=== PATIENT | female | born 1965 | race Caucasian/White ===

== ENCOUNTER → 2017-07-24 | Outpatient (CLI) | payer BC, OTHER ==
--- NOTE | ~2017-07-24 | O ---
[facility] [place] [address] OPERATIVE REPORT Name: GILBERTO TRUJILLO Room #: REG [facility]#: [id number] Admission: 07/24/17 Attend Phys: Ryan Gandara MD Discharge: Date of : 67 Report #: [id number] THIS REPORT FOR: //name// CC: Guillermo Almonte CLINICAL HISTORY: A 51-year-old white female with cavitary left upper lobe lung lesion. A diagnostic bronchoscopy was performed. POSTOPERATIVE DIAGNOSES: 1. Mild mucosal erythema involving the left upper lobe. 2. No endobronchial lesion seen. No evidence of purulent secretions seen. DESCRIPTION OF PROCEDURE: Following obtained consent and risks and benefits been explained to the patient, which included infection, bleeding, pneumothorax, the procedure was performed in the endoscopy suite. The patient received 4% aerosolized lidocaine to the upper airways, 2% and 1% to the upper airways. She also received total 6 mg of Versed and 50 mcg of fentanyl. A flexible fiberoptic bronchoscope was then introduced to the right naris without difficulty. The epiglottis was normal. Vocal cords were normal. Trachea was normal, sunshine was normal. Right main stem bronchus, right upper lobe, right middle lobe and right lower lobe were normal. Left mainstem bronchus were normal. The left upper lobe orifice was mildly erythematous and edematous. Mild mucus plug was seen in the apical segment of the left upper lobe. No overt purulent secretion was seen. No bleeding was noted. The left lower lobe was normal. Bronchoalveolar lavage was performed. 3 aliquots of 20 mL of normal saline was used. There was adequate return. Otherwise, the patient did have moderate cough during the procedure. Therefore, transbronchial biopsy was not performed. Otherwise, the patient tolerated the procedure well. Vital signs and saturation throughout the study were within normal range. The bronchial lavage specimen will be sent for microbiology studies including AFB smear, cytology along with cell count. <ELECTRONICALLY SIGNED> By: Ryan Gandara MD 07/28/17 1613 1618 1839 Ryan Gandara MD /nt
--- NOTE | ~2017-07-24 | CNG ---
[facility] [place] [address] CYTO-NONGYN REPORT PROCEDURE Name: SANDY TRUJILLO Room #: REG [facility].#: [id number] Admission: 07/24/17 Date of : 67 Discharge: Report #: [id number] Path Case #: [id number] CYTOPATHOLOGY REPORT COLLECTION DATE: 07/24/2017 RECEIVED DATE: 07/24/2017 SUBMITTING PHYS: Dr. Ryan Gandara OTHER PHYS: Dr. Guillermo Torres CLINICAL HISTORY: Cavitary lesion. SPECIMEN(S) RECEIVED: A.Bronchoalveolar lavage, LUCY * * * * * * * * * * * * FINAL DIAGNOSIS: A. Bronchoalveolar lavage, LUCY: - No malignant cells identified. Reactive, possibly atypical, bronchial epithelial cells are present. Alveolar macrophages and inflammatory cells are present. PATHOLOGIST: Nolan Miranda M.D. REPORT ELECTRONICALLY SIGNED BY: Nolan Miranda M.D. DATE/TIME: 07/25/2017 11:30 * * * * * * * * * * * * GROSS PATHOLOGY: A. Bronchoalveolar lavage, LUCY: The specimen is submitted unfixed, labeled "Susan Wiliknstyler Cuellar". Received by the Cytology Department is 15 mL of cloudy pink fluid. One ThinPrep slide was prepared. (clt 07.24.2017) TABLEAU ANALYST(S): IGNACIO Mims([facility] INITIAL CPT CODE(S): A; 97443 Professional services performed by [facility] at [facility] [address], [place] [address] Technical services performed by [facility] at [address] [place] [address]., [address], [place] [address]. [facility] [address] [place] [address], [facility] [address] [place], [place] [id number] [place] [address] [place] [address] CYTO-NONGYN REPORT PROCEDURE Name: SANDY TRUJILLO Room #: REG [facility] Milena.#: [id number] Admission: 07/24/17 Date of : 67 Discharge: Report #: [id number] Path Case #: [id number] PHONE: [phone] DIRECTOR: Justen Funes M.D. * * * END OF REPORT * * *
[2017-07-24 12:47] LABS: BF NUCLEATED CELLS 1693; BF RBC 6249
[2017-07-24 12:50] LABS: CLARITY SLIGHTLY CLOUDY; COLOR PINK; MANUAL DIFF YES; TOTAL VOLUME 20 mL
[2017-07-24 14:07] LABS: BF MACROPHAGE 15; BF NEUTROPHILS 72
== END | disposition home or self-care (01) ==
LOC: CATH 06:36
DX: R91.1 Solitary pulmonary nodule (principal)

== ENCOUNTER → 2020-06-27 | Outpatient (CLI) | payer BC, OTHER | LOC: RAD 09:20 | PROVIDERS: ATTEND Internal Medicine Pulmonary Disease | DX: R91.8 Other nonspecific abnormal finding of lung field (principal); R05 Cough; R91.1 Solitary pulmonary nodule ==

== ENCOUNTER 2020-11-28 07:28 | Outpatient (CLI) | payer BC, OTHER ==
[~2020-11-28] VITALS: Ht 177.8 cm; Wt 75.7 kg
[~2020-11-28 07:28] MED LIST: ALEVE220 M1 PO; ARAVA10 MG PO; FOLIC ACID1 MG PO; METHOTREXATE 22.5 M1 PO; PLAQUENIL200 MG PO; TRELEGY ELLIPT1 EACH INH
[2020-11-28 08:16] VITALS: BP 154/73
--- NOTE | 2020-11-29 16:06 | PATH ---
[facility] [address] [place] [address] PATHOLOGY RPT PROCEDURE Name: GILBERTO TRUJILLO Room #: DEP [facility].#: [id number] Admission: 11/28/20 Date of : 67 Discharge: 11/28/20 Report #: [id number] Path Case #: [id number] Note [facility] Accession Number: [id number] TESTS RESULT FLAG UNITS REF RANGE LAB Clinician Provided Cytology Information No. of containers..01 Slide Source: 01 BRUSHING RUL DIAGNOSIS: 02 BRUSHING RUL NEGATIVE FOR MALIGNANT EPITHELIAL CELLS. REACTIVE BRONCHIAL CELLS AND MACROPHAGES ARE PRESENT. PULMONARY MACROPHAGES (DUST CELLS) ARE PRESENT. Pathologist ICD10: 02 J18.9 Signed out by: 02 Ariella Mathew MD, Pathologist NPI- [id number] Performed by: Jelly Dela Cruz, Teacher Private ([facility]) Gross description: 01 1 FX /LCS 11/28/20202013 [facility] FLAG LEGEND: L-Low Normal,H-High Normal,LL-Alert Low,HH-Alert High <-Panic Low,>-Panic High,A-Abnormal,AA-Critical Abnormal Performed at: [address] [place] [address] Marcial Jackson MD, [address] [address] Ariella Mathew MD, Performed at: [address], [place], [place] [id number] MD Marcial Jackson MD Phone: [phone]
--- NOTE | 2020-11-29 16:06 | PATH ---
[facility] [address] [place] [address] PATHOLOGY RPT PROCEDURE Name: GILBERTO TRUJILLO Room #: DEP [facility].#: [id number] Admission: 11/28/20 Date of : 67 Discharge: 11/28/20 Report #: [id number] Path Case #: [id number] Note [facility] Accession Number: [id number] TESTS RESULT FLAG UNITS REF RANGE LAB Clinician Provided Cytology Information No. of containers..01 Other (Miscellaneous) Source: BRUSHING RUL BT DIAGNOSIS: BRUSHING RUL BT NEGATIVE FOR MALIGNANT EPITHELIAL CELLS. REACTIVE BRONCHIAL CELLS ARE PRESENT. Pathologist ICD10: 02 J18.9 Signed out by: 02 Ariella Mathew MD, Pathologist NPI- [id number] Performed by: 01 Olivia Dela Cruz Flower Shop Manager ([facility]) Gross description: 01 1 TP /ASIM 11/28/20202012 [facility] FLAG LEGEND: L-Low Normal,H-High Normal,LL-Alert Low,HH-Alert High <-Panic Low,>-Panic High,A-Abnormal,AA-Critical Abnormal Performed at: [address] [place] [address] Marcial Jackson MD, [address] [address] Ariella Mathew MD, Performed at: [address], [place], [place] [id number] MD Marcial Jackson MD Phone: [phone]
--- NOTE | 2020-11-29 16:06 | PATH ---
[facility] [address] [place] [address] PATHOLOGY RPT PROCEDURE Name: SANDY TRUJILLO Room #: DEP [facility].#: [id number] Admission: 11/28/20 Date of : 67 Discharge: 11/28/20 Report #: [id number] Path Case #: [id number] [facility] Accession Number: [id number] . 01 Material submitted: . lung - RIGHT UPPER LUNG. Modifiers: right, upper . 01 Clinical history: . RESISTENT INFECTION . 02 Diagnosis: Bronchus, right upper lobe tissue, biopsy: - Fragments of benign bronchial epithelium with chronic inflammation and numerous eosinophils. - Negative for dysplasia or malignancy. (IUV:nature photographer; 11/29/2020) MBR 11/29/2020 1410 Local . 02 Electronically signed: . Ariella Mathew MD, Pathologist NPI- [id number] . 01 Gross description: . The specimen is received in formalin, labeled "Sandy Trujillo, RUL biopsy". Received is a single needle core of pale pederson tissue measuring 0.6 cm in length by 0.1 cm in diameter. The specimen is filtered and entirely submitted in cassette A1. (CAA; 11/28/2020) QAC/QAC 11/29/2020 1409 Local . 02 Pathologist provided ICD-10: J98.4 . 02 CPT . 769708 Specimen Comment: A courtesy copy of this report has been sent to [phone] Specimen Comment: [phone] Specimen Comment: Report sent to / DR CALIXTO Performed at: [address], [place], [place] [id number] MD Marcial Jackson MD Phone: [phone] Performed at: [address] [id number] MD Ariella Mathew MD Phone: [phone]
--- NOTE | 2020-11-29 16:06 | PATH ---
[facility] [address] [employer] [place] [address] PATHOLOGY RPT PROCEDURE Name: GILBERTO TRUJILLO Room #: DEP [facility].#: [id number] Admission: 11/28/20 Date of : 67 Discharge: 11/28/20 Report #: [id number] Path Case #: [id number] Note [facility] Accession Number: [id number] TESTS RESULT FLAG UNITS REF RANGE LAB Clinician Provided Cytology Information No. of containers..01 Other (Miscellaneous) Source: BRONCH WASH RUL DIAGNOSIS: 02 BRONCH WASH RUL NEGATIVE FOR MALIGNANT EPITHELIAL CELLS. REACTIVE BRONCHIAL CELLS AND MACROPHAGES ARE PRESENT. PULMONARY MACROPHAGES (DUST CELLS) ARE PRESENT. Pathologist ICD10: 02 J18.9 Signed out by: 02 Ariella Mathew MD, Pathologist NPI- [id number] Performed by: 01 Olivia Dela Cruz, Roller Die Cutting Machine Operator ([facility]) Gross description: 01 4ML, CLOUDY RED, 1 TP /LCS 11/28/20202008 Local FLAG LEGEND: L-Low Normal,H-High Normal,LL-Alert Low,HH-Alert High <-Panic Low,>-Panic High,A-Abnormal,AA-Critical Abnormal Performed at: [address] [place] [address] Marcial Jackson MD, [address] [address] Ariella Mathew MD, Specimen Comment: A courtesy copy of this report has been sent to [phone] Specimen Comment: Report sent to Performed at: [address], [place], [place] [id number] MD Marcial Jackson MD Phone: [phone]
== END 2020-11-28 10:45 | disposition home or self-care (01) ==
LOC: PUL 07:28 → TBA 07:28 → PUL 10:04
PROVIDERS: ATTEND Internal Medicine Pulmonary Disease
DX: J98.4 Other disorders of lung (principal); J18.9 Pneumonia, unspecified organism; J45.909 Unspecified asthma, uncomplicated; D64.9 Anemia, unspecified; M06.9 Rheumatoid arthritis, unspecified; Z98.890 Other specified postprocedural states; Z79.899 Other long term (current) drug therapy; Z88.0 Allergy status to penicillin
CPT/HCPCS: 50010; 62110; 62900; 70005

== ENCOUNTER → 2021-01-02 | Outpatient (CLI) | payer BC, OTHER | LOC: RAD 12:28 | PROVIDERS: ATTEND Internal Medicine Pulmonary Disease | DX: J15.7 Pneumonia due to Mycoplasma pneumoniae (principal); R05 Cough ==